=== PATIENT | male | born 1995 | race African-American/Black ===

== ENCOUNTER 2021-11-24 18:54 | Emergency (ER) | payer OTHER, SELFPAY ==
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
[2021-11-24 19:09] VITALS: BP 120/61; PULSE 80; RESP 16; TEMP 37; O2SAT 100
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
== END 2021-11-24 20:36 | disposition home or self-care (01) ==
PROVIDERS: Emergency Provider Nurse Practitioner Family
DX: S13.4XXA Sprain of ligaments of cervical spine, initial encounter (principal); S39.012A Strain of muscle, fascia and tendon of lower back, initial encounter; M47.816 Spondylosis without myelopathy or radiculopathy, lumbar region; V47.5XXA Car driver injured in collision with fixed or stationary object in traffic accident, initial encounter
CPT/HCPCS: 70450; 72125; 72131; 99284